=== PATIENT | female | born 1965 | race Caucasian/White ===

== ENCOUNTER 2019-12-13 15:27 | Emergency (ER) | payer MEDICARE, OTHER ==
[~2019-12-13] VITALS: Ht 160 cm; Wt 59.0 kg
--- NOTE | 2019-12-13 15:37 | NUR ---
Dr Larios at the bedside for MSE.
[2019-12-13] MEDS ORDERED: CHLORDIAZEPOXIDE HCL 25 MG CAPSULE ONE (15:44)
[2019-12-13] MEDS ORDERED: CHLORDIAZEPOXIDE HCL 25 MG CAPSULE PO ONE (15:45)
[2019-12-13 15:50] VITALS: BP 155/97
--- NOTE | 2019-12-13 15:51 | NUR ---
Patient discharged to home in stable conditon. Written and verbal after care instructions given. Patient verbalizes understanding of instructions. Pt walked out of ER w/ steady gait.
== END 2019-12-13 15:51 | disposition home or self-care (01) ==
LOC: ER 15:27
DX: F10.10 Alcohol abuse, uncomplicated (principal); Z88.0 Allergy status to penicillin; Y90.9 Presence of alcohol in blood, level not specified
CPT/HCPCS: A4663